=== PATIENT | male | born 1935 | race Caucasian/White ===

== ENCOUNTER 2016-12-03 09:48 | Emergency (ER) | payer OTHER ==
[~2016-12-03] VITALS: Ht 180.3 cm; Wt 79.4 kg
[~2016-12-03 09:48] MED LIST: ACID CONTROLLER20 MG PO; ALBUTEROL2.5 MG/0.5 INH; ASPIRIN325 PO; FLOMAX0.4 MG PO; LOPRESSOR25 PO; MULTAQ 400 MG400 MG PO; MULTAQ400 MG PO; NORCO 5-325 TA1 EACH PO; PAIN RELIEF650 MG PO; QUINU10 PD; TOPROL XL25 MG PO; XARELTO20 MG PO; ZOCOR 10 MG TAB10 MG PO
[2016-12-03] MEDS ORDERED: KEFLEX500 MG PO (11:15)
== END 2016-12-03 11:31 | disposition home or self-care (01) ==
LOC: ER 09:48
DX: S61.011A Laceration without foreign body of right thumb without damage to nail, initial encounter (principal); S61.012A Laceration without foreign body of left thumb without damage to nail, initial encounter; I10 Essential (primary) hypertension; I12.9 Hypertensive chronic kidney disease with stage 1 through stage 4 chronic kidney disease, or unspecified chronic kidney disease; N18.9 Chronic kidney disease, unspecified; N40.0 Benign prostatic hyperplasia without lower urinary tract symptoms; K21.9 Gastro-esophageal reflux disease without esophagitis; I48.91 Unspecified atrial fibrillation; E78.5 Hyperlipidemia, unspecified; F10.99 Alcohol use, unspecified with unspecified alcohol-induced disorder; F17.220 Nicotine dependence, chewing tobacco, uncomplicated; Z86.711 Personal history of pulmonary embolism; Z88.8 Allergy status to other drugs, medicaments and biological substances; W18.39XA Other fall on same level, initial encounter; Y93.89 Activity, other specified; Y92.89 Other specified places as the place of occurrence of the external cause; Y99.8 Other external cause status

== ENCOUNTER → 2018-10-29 | Outpatient (CLI) | payer OTHER ==
[~2018-10-29] VITALS: Ht 180.3 cm; Wt 78.0 kg
[~2018-10-29] MED LIST changes: +DROXIA200 MG PO; +KEFLEX500 MG PO
[2018-10-29 10:45] VITALS: BP 162/77
[2018-10-29 10:59] LABS: HEMATOCRIT 31.9 % (42.0-52.0); HEMOGLOBIN 10.3 gm/dL (14.0-18.0); MCH 36.3 pg (26.0-34.0); MCHC 32.4 g/dL (28.0-37.0); MCV 112.1 fL (80.0-100.0); RBC 2.85 mil/uL (4.50-6.00); RDW 17.6 % (10.5-14.5); WBC 32.8 thou/uL (4.0-11.0)
[2018-10-29 11:08] LABS: CALCIUM 9.2 mg/dL (8.5-10.1); POTASSIUM 4.4 mmol/L (3.5-5.1)
== END | disposition home or self-care (01) ==
LOC: SPEC 06:49
PROVIDERS: Nuclear Medicine Nuclear Cardiology
DX: I70.1 Atherosclerosis of renal artery (principal); I12.9 Hypertensive chronic kidney disease with stage 1 through stage 4 chronic kidney disease, or unspecified chronic kidney disease; E11.22 Type 2 diabetes mellitus with diabetic chronic kidney disease; N18.9 Chronic kidney disease, unspecified; N40.0 Benign prostatic hyperplasia without lower urinary tract symptoms; E78.5 Hyperlipidemia, unspecified; K21.9 Gastro-esophageal reflux disease without esophagitis; I73.9 Peripheral vascular disease, unspecified; I48.91 Unspecified atrial fibrillation; I49.9 Cardiac arrhythmia, unspecified; Z79.4 Long term (current) use of insulin; Z87.19 Personal history of other diseases of the digestive system; Z98.890 Other specified postprocedural states; Z86.711 Personal history of pulmonary embolism; Z79.01 Long term (current) use of anticoagulants; Z87.891 Personal history of nicotine dependence; Z79.899 Other long term (current) drug therapy